=== PATIENT | male | born 1985 | race African-American/Black ===

== ENCOUNTER 2023-03-11 12:54 | Emergency (ER) | payer OTHER ==
[~2023-03-11] VITALS: Ht 170.2 cm; Wt 136.5 kg
[2023-03-11] MEDS ORDERED: metformin (13:00)
[2023-03-11 13:01] VITALS: TEMP 98.1; O2SAT 98
[2023-03-11 13:45] VITALS: BP 149/89; PULSE 89; RESP 16
[2023-03-11] MEDS ORDERED: IBUPROFEN 600MG TABLET PO ONE (13:45)
== END 2023-03-11 16:06 | disposition home or self-care (01) ==
LOC: ER 12:54
DX: M25.561 Pain in right knee (principal); E11.9 Type 2 diabetes mellitus without complications
CPT/HCPCS: 73560; 99283; Z7610; L1830